=== PATIENT | female | born 2000 | race Hispanic/Latino ===

== ENCOUNTER 2025-06-19 17:41 | Emergency (ER) | payer SELFPAY ==
[~2025-06-19] VITALS: Ht 157.5 cm; Wt 113.4 kg
--- NOTE | 2025-06-19 17:53 | ERN ---
ED Note History of Present Illness Stated Complaint: FEVER Chief Complaint: Fever Time Seen by MD: 17:43 Time Seen by Midlevel: 17:43 Dictation: The patient is a 25 year old female with history of cholecystectomy who presents to the emergency department with complains of fevers, runny nose, feeling hot onset 2 days ago. Reports frequent sneezing and watery eyes. Allergies: Coded Allergies: No Known Allergies (Unverified Allergy, Unknown, 06/19/25) Past Medical History Past Medical History: No Pertinent History Surgical History: Other LMP: Jun 15, 2025 RN Note Reviewed/Agreed w/PFSH: Yes Review of System Dictation Constitutional: Negative for ,chills, and weight loss positive for fever Eyes: Negative for injury, pain,redness, and discharge positive for watery eyes ENT: Negative for injury,pain or swelling positive for runny nose Cardiovascular: Negative for chest pain, palpitations, and edema Respiratory: Negative for shortness of breath, cough, and wheezing, Abdomen/GI: Negative for abdominal pain, nausea, vomiting, diarrhea, and constipation Back: Negative for injury and pain : Negative for injury, bleeding and discharge MS/Extremity: Negative for injury and deformity Skin: Negative for rash, and discoloration Neuro: Negative for headache, weakness, numbness, tingling, and seizure Psych: Negative for suicide ideation, homicidal ideation, and hallucinations Initial Vital Sign VS Vital Signs Date Time Temp Pulse Resp B/P (MAP) Pulse Ox O2 Delivery O2 Flow Rate FiO2 06/19/25 17:43 100.2 93 20 165/92 99 Room Air 06/19/25 18:05 0 21 Physical Exam Dictation Vital Signs reviewed General Appearance: Alert, oriented x 3, no acute distress, well developed, nourished. Head and Face: non-traumatic. Eyes: PERRL, pink conjunctivas, eyelid no trauma, anterior chamber with arcus senilis. Ears: Pinnas intact and no signs of trauma or erythema ear canals clear and no discharge TM no erythema Nose: No discharge, no bleeding. Oropharynx: Mouth normal, tongue pink. pharynx clear,no erythema, tonsils no exudates, no abscesses noted, mucous membrane moist Neck: Supple, non-tender, no thyromegaly, no masses, no JVD, no bruits Breast:Deferred Chest:No tenderness, no crepitus, no paradoxical movement, no retractions Lungs:Clear, well-ventilated, symmetric, no rales, no wheezing, no rhonchi, no stridor, good breath sounds bilaterally Heart: Regular rate, regular rhythm, no murmur, no gallops Vascular: no peripheral edema, Abdomen: Soft, positive bowel sounds, nondistended, no guarding, nontender, no rebound, no masses no hepatomegaly, no splenomegaly, no Hanks's sign, no hernias. Rectal: Deferred Genital: Deferred Neurological: Normal speech, motor function intact, sensory function intact Musculoskeletal: Neck nontender, full range of motion, back nontender, full range of motion, Extremities: nontender, full range of motion Skin: Color pink, dry, no turgor, no rash, no lacerations, no abrasions, no contusions. Lymphatic: Deferred Results (Laboratory/Radiology) Laboratory/Radiology Laboratory Tests Test 06/19/25 18:01 Influenza Type A Antigen Negative For Type A Influenza Type B Antigen Negative For Type B SARS-CoV-2 Antigen (Rapid) PRESUMPTIVE NEGATIVE Labs Reviewed?: Yes ED Course ED Course Orders Procedure Category Date Status Time Covid19 (Sars Antigen LAB 06/19/25 Complete Rapid) 17:51 Influenza Type A & B, LAB 06/19/25 Complete Rapid 17:51 Acetaminophen 500mg PHA 06/19/25 In Process Tab (Tylenol 500mg T 18:00 Current Medications Medications (Trade) Dose Ordered Sig/Carla Route PRN Reason Start Time Stop Time Status Last Admin Dose Admin Acetaminophen (TYLenol 500MG TAB) 1,000 mg ONCE PO 06/19/25 18:00 06/19/25 22:00 06/19/25 18:09 Vital Signs Date Time Temp Pulse Resp B/P (MAP) Pulse Ox O2 Delivery O2 Flow Rate FiO2 06/19/25 18:05 100.2 93 20 165/92 99 Room Air* 0 21 06/19/25 17:43 100.2 93 20 165/92 99 Room Air Medical Decision Making MDM The patient is a 25 year old female with history of cholecystectomy who presents to the emergency department with complains of fevers, runny nose, feeling hot onset 2 days ago. Reports frequent sneezing and watery eyes. serology negative. Patients symptoms consistent with an upper respiratory infection. On physical exam patient is in no acute distress. Stable vital signs. Clear lung sounds. non toxic appearance. Patient will be discharge to follow up with PCP. Differential diagnosis:uri, covid, otitis media Need for hospitalization: Patient does not meet criteria for hospitalization. There are no social concerns with this patient. DX & DISP Disposition: Discharge Departure Impression: Primary Impression: URI (upper respiratory infection) Condition: Stable Additional Instructions: Your symptoms are due to a upper respiratory infection. No need for any antibiotics at this time. You can continue taking tylenol as needed for fever. Please follow up with your primary doctor in 1-2 days. Referrals: SELF,REFERRAL (PCP) Time of Disposition: 18:53 I have reviewed the case, and I agree with, Diagnosis and Plan ILAN AZUL [employer] A[employer] Jun 19, 2025 17:53
[2025-06-19 18:27] LABS: COVID19 (SARS ANTIGEN RAPID) PRESUMPTIVE NEGATIVE (NEGATIVE); INFLUENZA TYPE A Negative For Type A (NEGATIVE); INFLUENZA TYPE B Negative For Type B (NEGATIVE)
[2025-06-19 19:15] VITALS: BP 142/74; PULSE 88; RESP 20; TEMP 98.6; O2SAT 99
== END 2025-06-19 19:18 | disposition home or self-care (01) ==
LOC: EDH 17:41
DX: J06.9 Acute upper respiratory infection, unspecified (principal); Z20.822 Contact with and (suspected) exposure to COVID-19
CPT/HCPCS: 87426; 87804; 99283